=== PATIENT | male | born 1990 | race African-American/Black ===

== ENCOUNTER 2023-02-26 16:25 | Emergency (ER) | payer MEDICAID ==
[~2023-02-26] VITALS: Ht 182.9 cm; Wt 63.6 kg
[2023-02-26 17:13] VITALS: BP 126/57; PULSE 82; RESP 18; O2SAT 99
[2023-02-26] MEDS ORDERED: ACETAMINOPHEN 325MG TABLET PO ONE (18:15)
[2023-02-26] MEDS ORDERED: CEFTRIAXONE SODIUM 1 G/VIAL IM ONE (18:15)
[2023-02-26] MEDS ORDERED: LIDOCAINE HCL/EPINEPHRINE 1%-EPI 1:100,000 20 ML VIAL INFIL ONE (18:15)
[2023-02-26] MEDS ORDERED: LIDOCAINE HCL/PF 1% 10 MG/ML 5ML VIAL INFIL ONE (18:15)
[2023-02-26] MEDS ORDERED: LIDOCAINE HCL 1% 20ML VIAL (Pyxis) INJ INFIL ONE (18:15)
[2023-02-26] MEDS ORDERED: CLIN-194 MT (18:44)
[2023-02-26] MEDS ORDERED: IBUP-2028 MT (18:44)
[2023-02-26 19:11] VITALS: TEMP 98.3
== END 2023-02-26 19:23 | disposition home or self-care (01) ==
LOC: ER 16:25
DX: L02.31 Cutaneous abscess of buttock (principal)
CPT/HCPCS: 10060; 96372; 99283; J0696; J3490; Z7610 ×4

== ENCOUNTER 2023-02-27 18:53 | Emergency (ER) | payer MEDICAID ==
[~2023-02-27] VITALS: Ht 182.9 cm; Wt 64.5 kg
[~2023-02-27 18:53] MED LIST: CLIN-194 MT; IBUP-2028 MT
[2023-02-27 19:01] VITALS: BP 109/52
== END 2023-02-27 20:50 | disposition home or self-care (01) ==
LOC: ER 18:53
DX: L02.31 Cutaneous abscess of buttock (principal)
CPT/HCPCS: 99281

== ENCOUNTER 2023-02-28 17:11 | Emergency (ER) | payer MEDICAID ==
[~2023-02-28] VITALS: Ht 182.9 cm; Wt 65.0 kg
[2023-02-28 17:22] VITALS: BP 109/62
[2023-02-28] MEDS ORDERED: ACETAMINOPHEN 500MG TABLET PO ONE (18:15)
== END 2023-02-28 18:02 | disposition home or self-care (01) ==
LOC: ER 17:11
DX: Z48.02 Encounter for removal of sutures (principal)
CPT/HCPCS: 99281; Z7610

== ENCOUNTER 2023-03-02 12:43 | Emergency (ER) | payer MEDICAID ==
[~2023-03-02] VITALS: Ht 182.9 cm; Wt 64.0 kg
[2023-03-02 12:49] VITALS: BP 110/64
== END 2023-03-02 16:43 | disposition left against medical advice (07) ==
LOC: ER 12:43
DX: Z48.00 Encounter for change or removal of nonsurgical wound dressing (principal); Z53.21 Procedure and treatment not carried out due to patient leaving prior to being seen by health care provider
CPT/HCPCS: 99281

== ENCOUNTER 2023-03-03 11:48 | Emergency (ER) | payer MEDICAID ==
[~2023-03-03] VITALS: Ht 182.9 cm; Wt 70.0 kg
[2023-03-03 13:26] VITALS: BP 131/74
== END 2023-03-03 13:55 | disposition home or self-care (01) ==
LOC: ER 13:52
DX: L02.31 Cutaneous abscess of buttock (principal)
CPT/HCPCS: 99281